=== PATIENT | female | born 1985 | race Two or more races ===

== ENCOUNTER 2020-07-19 10:49 | Emergency (ER) | payer MEDICAID, OTHER ==
[~2020-07-19] VITALS: Ht 167.6 cm; Wt 59.4 kg
[2020-07-19 11:25] VITALS: BP 111/76
[2020-07-19] MEDS ORDERED: cefTRIAXone SOD 1,000 MG VL IM ONE (13:30)
[2020-07-19] MEDS ORDERED: ACETAMINOPHEN 500 MG TAB PO ONE (13:45)
== END 2020-07-19 14:13 | disposition home or self-care (01) ==
LOC: ER 10:49
DX: H66.93 Otitis media, unspecified, bilateral (principal); R51 Headache; Z88.0 Allergy status to penicillin; Z91.040 Latex allergy status
CPT/HCPCS: 70450; 96372; 99284; J0696